=== PATIENT | male | born 1970 | race Caucasian/White ===

== ENCOUNTER 2022-05-13 12:05 | Emergency (ER) | payer BC ==
[~2022-05-13] VITALS: Ht 180.3 cm; Wt 108.4 kg
--- NOTE | 2022-05-13 12:27 | NUR ---
DR MARTINEZ AT BEDSIDE FOR EVAL
--- NOTE | 2022-05-13 12:27 | NUR ---
BIBS C/O CHEST TIGHTNESS AND SOB X 1 WEEK, WORSE THIS MORNING. PT DESCRIBED THE PAIN DULL AND STATED THAT IT HAS BEEN ON AN OFF FOR A WEEK, THIS MORNING THE PAIN INCREASED AND RADIATED TO HIS L SHOULDER CURRENTLY THE PAIN IS AT ITS NORMAL STATE OF DULL. PAIN IS 6/10 ON PAIN SCALE. PT DENIES NAUSEA, VOMITING AND HEADACHE. PT IS A&OX4. ATTACHED TO MONITOR. DR ANAMIKA PEGUERO AT BEDSIDE FOR EVAL. AWAITING MD ORDERS.
--- NOTE | 2022-05-13 12:30 | NUR ---
TECH AT BEDSIDE FOR EKG
--- NOTE | 2022-05-13 12:44 | NUR ---
IV LINE INSERTED ON RAC #20, BLOOD DRAWN AND COLLECTED BY PHLEB AT BEDSIDE
[2022-05-13 12:52] LABS: BASOPHILS # (AUTO) 0.1 K/uL (0.0-0.2); BASOPHILS % (AUTO) 0.7 % (0.0-2.0); EOSINOPHILS % (AUTO) 0.3 % (0.0-6.0); HEMATOCRIT 47 % (39-51); HEMOGLOBIN 15.9 g/dL (13.5-17.5); LYMPHOCYTES # (AUTO) 1.3 K/uL (0.8-4.8); LYMPHOCYTES % (AUTO) 15.4 % (20.0-44.0); MEAN CORPUSCULAR HGB CONC 34 g/dl (31.0-36.0); MEAN CORPUSCULAR VOLUME 93 fL (80-96); MONOCYTES # (AUTO) 0.7 K/uL (0.1-1.30); MONOCYTES % (AUTO) 7.8 % (2.0-12.0); NEUTROPHILS # (AUTO) 6.7 K/uL (1.8-8.9); NEUTROPHILS % (AUTO) 75.8 % (43.0-81.0); PLATELET COUNT (AUTO) 247 K/uL (150-450); WHITE BLOOD COUNT (AUTO) 8.8 K/uL (4.3-11.0)
[2022-05-13] MEDS ORDERED: METO50TA16 PO (12:56)
[2022-05-13] MEDS ORDERED: ATOR10TA PO (12:56)
[2022-05-13] MEDS ORDERED: DULO60CA64 PO (12:56)
[2022-05-13 13:00] LABS: CALCIUM, SERUM 9.6 mg/dL (8.5-10.1); CARBON DIOXIDE 27 mmol/L (21-32); CHLORIDE 101 mmol/L (98-107); GLUCOSE 106 mg/dL (74-106); POTASSIUM 4.1 mmol/L (3.5-5.1); SODIUM SERUM 137 mmol/L (136-145); UREA NITROGEN, BLOOD 13 mg/dL (7-18)
--- NOTE | 2022-05-13 13:49 | NUR ---
IV removed. Catheter intact and site benign. Pressure and 4x4 applied to site. No bleeding noted.Patient discharged to home in stable condition. Written and verbal after care instructions given. Patient verbalizes understanding of instruction.
[2022-05-13 13:51] VITALS: BP 151/94
== END 2022-05-13 13:51 | disposition home or self-care (01) ==
LOC: ER 12:20
DX: F41.9 Anxiety disorder, unspecified (principal); I10 Essential (primary) hypertension; E78.00 Pure hypercholesterolemia, unspecified; Z60.2 Problems related to living alone; Z79.899 Other long term (current) drug therapy
CPT/HCPCS: 36415; 71045-TC; 80048-TC; 84484-TC; 85025-TC